=== PATIENT | female | born 1950 | race Caucasian/White ===

== ENCOUNTER 2018-07-07 10:02 | Emergency (ER) | payer MEDICARE, MEDICAID ==
[2018-07-07] MEDS ORDERED: Sodium Chloride 0.9% 10 ML Syringe FLUSH PRN (10:36)
[2018-07-07] MEDS ORDERED: GI Cocktail Oral Solution 30 ML PO ONE (10:38)
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
[2018-07-07] MEDS ORDERED: Sodium Chloride 0.9% 1,000 ML IV SCH (11:00)
[2018-07-07] MEDS ORDERED: Pantoprazole 40 MG Vial IVPUSH ONE (11:39)
[2018-07-07] MEDS ORDERED: Iopamidol 755 Mg/ML 100 ML Bottle IVPUSH ONE (11:39)
[2018-07-07] MEDS ORDERED: Iopamidol 755 MG/ML 150 ML Bottle IV ONE (11:53)
[2018-07-07] MEDS ORDERED: Pantoprazole 40 MG Vial ONE (13:43)
== END 2018-07-07 14:19 | disposition home or self-care (01) ==
LOC: LL.ED 10:02
DX: K29.70 Gastritis, unspecified, without bleeding (principal); I25.2 Old myocardial infarction; J44.9 Chronic obstructive pulmonary disease, unspecified; Z88.1 Allergy status to other antibiotic agents; Z88.8 Allergy status to other drugs, medicaments and biological substances; Z87.891 Personal history of nicotine dependence
CPT/HCPCS: 36415; 71046; 71275; 74177; 80053; 81001; 82150; 83690; 84484; 85025; 85379; 93005; 96361; 96374; 99284-25; A9270-GY; C9113; J7030; Q9967

== ENCOUNTER 2018-11-28 14:24 | Emergency (ER) | payer OTHER, MEDICARE, MEDICAID ==
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
[2018-11-28] MEDS ORDERED: Ketorolac 60 MG/2 ML SDV IM ONE (14:55)
[2018-11-28] MEDS ORDERED: methylPREDNISolone Acetate 80 MG/ML SDV IM ONE (14:56)
== END 2018-11-28 15:33 | disposition home or self-care (01) ==
LOC: LL.ED 14:24
DX: S29.011A Strain of muscle and tendon of front wall of thorax, initial encounter (principal); I25.10 Atherosclerotic heart disease of native coronary artery without angina pectoris; K21.9 Gastro-esophageal reflux disease without esophagitis; J43.1 Panlobular emphysema; I10 Essential (primary) hypertension; M15.0 Primary generalized (osteo)arthritis; I25.2 Old myocardial infarction; F41.9 Anxiety disorder, unspecified; F32.9 Major depressive disorder, single episode, unspecified; Z88.0 Allergy status to penicillin; Z88.6 Allergy status to analgesic agent; Z79.899 Other long term (current) drug therapy; Z79.82 Long term (current) use of aspirin; Z87.891 Personal history of nicotine dependence; X50.9XXA Other and unspecified overexertion or strenuous movements or postures, initial encounter
CPT/HCPCS: 71046; 96372; 99283; J1040; J1885

== ENCOUNTER 2021-07-11 12:22 | Emergency (ER) | payer MEDICAID, MEDICARE ==
[2021-07-11 13:45] LABS: ANION GAP 8.1 meq/L (7-15); CHLORIDE,CL 103 mmol/L (98-107); SODIUM,NA 141 mmol/L (136-145)
[2021-07-11] MEDS ORDERED: Albuterol/Ipratropium 3.0-0.5 MG/3 ML Neb Soln ONE (13:55)
== END 2021-07-11 14:29 | disposition home or self-care (01) ==
LOC: LL.ED 12:22
DX: J44.1 Chronic obstructive pulmonary disease with (acute) exacerbation (principal); I25.10 Atherosclerotic heart disease of native coronary artery without angina pectoris; I10 Essential (primary) hypertension; I25.2 Old myocardial infarction; K21.9 Gastro-esophageal reflux disease without esophagitis; Z88.0 Allergy status to penicillin; Z88.8 Allergy status to other drugs, medicaments and biological substances; Z79.82 Long term (current) use of aspirin; Z79.899 Other long term (current) drug therapy
CPT/HCPCS: 36415; 71046; 80053; 83605; 83735; 85025; 86140; 93005; 93010; 99284; 99285-25; J7620-GY

== ENCOUNTER 2022-02-18 14:15 | Emergency (ER) | payer MEDICARE, MEDICAID ==
[2022-02-18] MEDS ORDERED: Sodium Chloride 0.9% 10 ML Syringe FLUSH PRN (14:28)
[2022-02-18] MEDS ORDERED: Albuterol/Ipratropium 3.0-0.5 MG/3 ML Neb Soln NEB ONE (14:32)
[2022-02-18] MEDS ORDERED: methylPREDNISolone Sodium Succinate 125 MG/2 ML SDV IV ONE (14:32)
[2022-02-18 15:12] LABS: CORONAVIRUS COVID-19 NAA NEGATIVE (NEGATIVE); RESPIRATORY SYNCYTIAL VIR NAA NEGATIVE (NEGATIVE)
[2022-02-18 15:15] LABS: PTT,PARTIAL THROMBOPLSTIN TIME 24.6 SEC (23.6-29.8)
[2022-02-18 15:25] LABS: ANION GAP 10.6 meq/L (7-15)
[2022-02-18] MEDS ORDERED: cefTRIAXone 2 GM Vial IVPUSH ONE (15:36)
[2022-02-18] MEDS ORDERED: Doxycycline Monohydrate 100 MG Cap PO ONE (15:36)
== END 2022-02-18 16:50 | disposition home or self-care (01) ==
LOC: LL.ED 14:15
DX: J18.9 Pneumonia, unspecified organism (principal); I25.10 Atherosclerotic heart disease of native coronary artery without angina pectoris; I10 Essential (primary) hypertension; Z88.0 Allergy status to penicillin; Z79.82 Long term (current) use of aspirin; Z79.899 Other long term (current) drug therapy; Z20.822 Contact with and (suspected) exposure to COVID-19
CPT/HCPCS: 0241U; 36415; 71045; 80053; 83605; 83735; 83880; 84100; 84484; 85025; 85610; 85730; 86140; 87040; 93005; 93010; 94640; 94761; 96374; 96375; 99284; 99284-25; A9270-GY; J0696; J2930; J3490; J7620-GY

== ENCOUNTER 2022-02-23 18:49 | Emergency (ER) | payer MEDICARE, MEDICAID ==
[2022-02-23] MEDS: LORazepam 1 MG Tab PO ONE (19:26)
[2022-02-23 19:34] LABS: ANION GAP 8.1 meq/L (7-15); CHLORIDE,CL 103 mmol/L (98-107); SODIUM,NA 141 mmol/L (136-145)
[2022-02-23 19:35] LABS: ESTIMATED GFR 46 mL/min (>=60)
[2022-02-23] MEDS: methylPREDNISolone Sodium Succinate 125 MG/2 ML SDV IM ONE (20:36)
== END 2022-02-23 20:45 | disposition home or self-care (01) ==
LOC: LL.ED 18:49
DX: J44.9 Chronic obstructive pulmonary disease, unspecified (principal); F41.9 Anxiety disorder, unspecified; I25.10 Atherosclerotic heart disease of native coronary artery without angina pectoris; I10 Essential (primary) hypertension; Z88.0 Allergy status to penicillin; Z79.82 Long term (current) use of aspirin; Z79.899 Other long term (current) drug therapy
CPT/HCPCS: 36415; 71046; 80053; 83605; 83880; 85025; 85379; 96372; 99284; 99285; A9270-GY; J2930

== ENCOUNTER 2022-07-07 10:52 | Inpatient (IN) | payer MEDICARE, MEDICAID ==
[2022-07-07] MEDS ORDERED: Ondansetron 4 MG Tab.DIS PO PRN (11:00)
[2022-07-07] MEDS: predniSONE 20 MG Tab PO SCH (11:43)
[2022-07-07] MEDS: Albuterol/Ipratropium 3.0-0.5 MG/3 ML Neb Soln NEB SCH ×4 (11:43→23:10)
[2022-07-07] MEDS: oxyCODONE 5 MG Tab PO PRN (11:44)
[2022-07-07] MEDS ORDERED: Polyethylene Glycol 3350 Powder 17 GM Packet PO PRN (12:17)
[2022-07-07 12:20] LABS: ANION GAP 8.1 meq/L (7-15)
[2022-07-07] MEDS: Levofloxacin/Dextrose 5%-Water 750 MG in Premix Bag 1 BAG IV SCH (13:34)
[2022-07-07] MEDS: Magnesium Chloride 64 MG Tab.ER PO SCH (17:15)
[2022-07-07] MEDS: buPROPion 150 MG Tab.SR PO SCH (17:15)
[2022-07-07] MEDS: Arformoterol 15 MCG/2 ML Neb Soln INH SCH (17:15)
[2022-07-07] MEDS: Calcium Carbonate 500 MG Tab.Chew PO SCH (17:15)
[2022-07-07] MEDS ORDERED: LORazepam 0.5 MG Tab PO SCH (18:00)
[2022-07-07] MEDS: Budesonide 0.5 MG/2 ML Neb Susp INH SCH (19:10)
[2022-07-07] MEDS: Venlafaxine 75 MG Cap.ER PO SCH (19:10)
[2022-07-07] MEDS: atorvaSTATin 40 MG Tab PO SCH (19:11)
[2022-07-07] MEDS: Montelukast 10 MG Tab PO SCH (19:11)
[2022-07-07] MEDS: Diltiazem 120 MG Cap.CD PO SCH (19:11)
[2022-07-07] MEDS: LORazepam 1 MG Tab PO SCH (19:11)
[2022-07-07] MEDS: Losartan 25 MG Tab PO SCH (19:11)
[2022-07-07] MEDS: Acetaminophen 325 MG Tab PO PRN (21:18)
[2022-07-08] MEDS: Albuterol/Ipratropium 3.0-0.5 MG/3 ML Neb Soln NEB SCH ×7 (02:56→23:56)
[2022-07-08] MEDS: Arformoterol 15 MCG/2 ML Neb Soln INH SCH ×2 (07:42→17:13)
[2022-07-08] MEDS: Budesonide 0.5 MG/2 ML Neb Susp INH SCH ×2 (07:42→20:40)
[2022-07-08] MEDS: Magnesium Chloride 64 MG Tab.ER PO SCH ×2 (07:42→17:13)
[2022-07-08] MEDS: Enoxaparin 40 MG/0.4 ML Syringe SUBCUT SCH (07:42)
[2022-07-08] MEDS: Aspirin 81 MG Tab.Chew PO SCH (07:42)
[2022-07-08] MEDS: predniSONE 20 MG Tab PO SCH (07:43)
[2022-07-08] MEDS: Cholecalciferol (Vitamin D3) 10 MCG Tab PO SCH ×2 (07:43→17:13)
[2022-07-08] MEDS: Calcium Carbonate 500 MG Tab.Chew PO SCH ×2 (07:43→17:13)
[2022-07-08] MEDS: LORazepam 0.5 MG Tab PO SCH (07:43)
[2022-07-08] MEDS: Oxybutynin 5 MG Tab.ER PO SCH (07:44)
[2022-07-08] MEDS: buPROPion 150 MG Tab.SR PO SCH ×2 (07:44→17:13)
[2022-07-08] MEDS: Omeprazole 20 MG Cap.CR PO SCH (07:44)
[2022-07-08] MEDS: Tiotropium Bromide 4 GM Inhalation Spray (2.5mcg/1 dose; 10 doses) INH SCH (07:45)
[2022-07-08] MEDS: Acetaminophen 325 MG Tab PO PRN ×2 (07:53→13:23)
[2022-07-08] MEDS: Roflumilast [Daliresp] 500 MCG Tablet PO SCH (20:38)
[2022-07-08] MEDS: Montelukast 10 MG Tab PO SCH (20:38)
[2022-07-08] MEDS: Venlafaxine 75 MG Cap.ER PO SCH (20:38)
[2022-07-08] MEDS: atorvaSTATin 40 MG Tab PO SCH (20:38)
[2022-07-08] MEDS: Diltiazem 120 MG Cap.CD PO SCH (20:38)
[2022-07-08] MEDS: Losartan 25 MG Tab PO SCH (20:39)
[2022-07-08] MEDS: LORazepam 1 MG Tab PO SCH (20:39)
[2022-07-08] MEDS: Latanoprost 0.005% Ophth Soln 2.5 ML Bottle EYEBOTH SCH (20:39)
[2022-07-08] MEDS: oxyCODONE 5 MG Tab PO PRN (23:56)
[2022-07-09] MEDS: Albuterol/Ipratropium 3.0-0.5 MG/3 ML Neb Soln NEB SCH ×6 (04:16→23:08)
[2022-07-09] MEDS: Acetaminophen 325 MG Tab PO PRN ×2 (06:26→21:45)
[2022-07-09] MEDS: LORazepam 0.5 MG Tab PO SCH (07:36)
[2022-07-09] MEDS: Aspirin 81 MG Tab.Chew PO SCH (07:36)
[2022-07-09] MEDS: Budesonide 0.5 MG/2 ML Neb Susp INH SCH ×2 (07:37→19:19)
[2022-07-09] MEDS: Tiotropium Bromide 4 GM Inhalation Spray (2.5mcg/1 dose; 10 doses) INH SCH (07:37)
[2022-07-09] MEDS: Calcium Carbonate 500 MG Tab.Chew PO SCH ×2 (07:38→17:43)
[2022-07-09] MEDS: Cholecalciferol (Vitamin D3) 10 MCG Tab PO SCH ×2 (07:38→17:43)
[2022-07-09] MEDS: buPROPion 150 MG Tab.SR PO SCH ×2 (07:39→17:43)
[2022-07-09] MEDS: Oxybutynin 5 MG Tab.ER PO SCH (07:40)
[2022-07-09] MEDS: predniSONE 20 MG Tab PO SCH (07:40)
[2022-07-09] MEDS: Roflumilast [Daliresp] 500 MCG Tablet PO SCH (07:41)
[2022-07-09] MEDS: Magnesium Chloride 64 MG Tab.ER PO SCH ×2 (07:41→17:43)
[2022-07-09] MEDS: Omeprazole 20 MG Cap.CR PO SCH (07:41)
[2022-07-09] MEDS: Enoxaparin 40 MG/0.4 ML Syringe SUBCUT SCH (07:42)
[2022-07-09] MEDS: Arformoterol 15 MCG/2 ML Neb Soln INH SCH ×2 (08:10→17:43)
[2022-07-09] MEDS: oxyCODONE 5 MG Tab PO PRN (08:43)
[2022-07-09 09:12] LABS: ANION GAP 9.8 meq/L (7-15)
[2022-07-09] MEDS: Sodium Chloride 0.9% 10 ML Syringe FLUSH PRN ×2 (12:01→12:03)
[2022-07-09] MEDS: Levofloxacin/Dextrose 5%-Water 750 MG in Premix Bag 1 BAG IV SCH (12:01)
[2022-07-09] MEDS: Montelukast 10 MG Tab PO SCH (19:19)
[2022-07-09] MEDS: LORazepam 1 MG Tab PO SCH (19:20)
[2022-07-09] MEDS: Venlafaxine 75 MG Cap.ER PO SCH (19:20)
[2022-07-09] MEDS: atorvaSTATin 40 MG Tab PO SCH (19:20)
[2022-07-09] MEDS: Diltiazem 120 MG Cap.CD PO SCH (19:21)
[2022-07-09] MEDS: Losartan 25 MG Tab PO SCH (19:21)
[2022-07-09] MEDS: Latanoprost 0.005% Ophth Soln 2.5 ML Bottle EYEBOTH SCH (19:22)
[2022-07-10] MEDS: Albuterol/Ipratropium 3.0-0.5 MG/3 ML Neb Soln NEB SCH ×6 (04:57→23:21)
[2022-07-10] MEDS: Aspirin 81 MG Tab.Chew PO SCH (07:17)
[2022-07-10] MEDS: LORazepam 0.5 MG Tab PO SCH (07:17)
[2022-07-10] MEDS: Oxybutynin 5 MG Tab.ER PO SCH (07:18)
[2022-07-10] MEDS: Cholecalciferol (Vitamin D3) 10 MCG Tab PO SCH ×2 (07:18→19:10)
[2022-07-10] MEDS: Omeprazole 20 MG Cap.CR PO SCH (07:18)
[2022-07-10] MEDS: predniSONE 20 MG Tab PO SCH (07:18)
[2022-07-10] MEDS: Magnesium Chloride 64 MG Tab.ER PO SCH ×2 (07:18→17:41)
[2022-07-10] MEDS: Calcium Carbonate 500 MG Tab.Chew PO SCH ×2 (07:19→17:41)
[2022-07-10] MEDS: buPROPion 150 MG Tab.SR PO SCH ×2 (07:19→17:41)
[2022-07-10] MEDS: Tiotropium Bromide 4 GM Inhalation Spray (2.5mcg/1 dose; 10 doses) INH SCH (07:19)
[2022-07-10] MEDS: Roflumilast [Daliresp] 500 MCG Tablet PO SCH (07:20)
[2022-07-10] MEDS: oxyCODONE 5 MG Tab PO PRN ×2 (07:21→23:21)
[2022-07-10] MEDS: Enoxaparin 40 MG/0.4 ML Syringe SUBCUT SCH (07:22)
[2022-07-10] MEDS: Arformoterol 15 MCG/2 ML Neb Soln INH SCH ×2 (08:07→17:45)
[2022-07-10] MEDS: Budesonide 0.5 MG/2 ML Neb Susp INH SCH ×2 (08:19→19:33)
[2022-07-10 10:30] LABS: ANION GAP 9.6 meq/L (7-15)
[2022-07-10] MEDS: Acetaminophen 325 MG Tab PO PRN (13:16)
[2022-07-10] MEDS: Sodium Chloride 0.9% 10 ML Syringe FLUSH PRN (13:19)
[2022-07-10] MEDS: Montelukast 10 MG Tab PO SCH (19:30)
[2022-07-10] MEDS: Venlafaxine 75 MG Cap.ER PO SCH (19:30)
[2022-07-10] MEDS: Diltiazem 120 MG Cap.CD PO SCH (19:31)
[2022-07-10] MEDS: atorvaSTATin 40 MG Tab PO SCH (19:31)
[2022-07-10] MEDS: LORazepam 1 MG Tab PO SCH (19:31)
[2022-07-10] MEDS: Losartan 25 MG Tab PO SCH (19:33)
[2022-07-10] MEDS: Latanoprost 0.005% Ophth Soln 2.5 ML Bottle EYEBOTH SCH (19:51)
[2022-07-11] MEDS: Albuterol/Ipratropium 3.0-0.5 MG/3 ML Neb Soln NEB SCH ×3 (04:38→10:07)
[2022-07-11] MEDS: Calcium Carbonate 500 MG Tab.Chew PO SCH (07:28)
[2022-07-11] MEDS: Enoxaparin 40 MG/0.4 ML Syringe SUBCUT SCH (07:28)
[2022-07-11] MEDS: predniSONE 20 MG Tab PO SCH (07:29)
[2022-07-11] MEDS: Aspirin 81 MG Tab.Chew PO SCH (07:29)
[2022-07-11] MEDS: Oxybutynin 5 MG Tab.ER PO SCH (07:29)
[2022-07-11] MEDS: Omeprazole 20 MG Cap.CR PO SCH (07:30)
[2022-07-11] MEDS: Budesonide 0.5 MG/2 ML Neb Susp INH SCH (07:30)
[2022-07-11] MEDS: Roflumilast [Daliresp] 500 MCG Tablet PO SCH (07:30)
[2022-07-11] MEDS: buPROPion 150 MG Tab.SR PO SCH (07:30)
[2022-07-11] MEDS: Magnesium Chloride 64 MG Tab.ER PO SCH (07:30)
[2022-07-11] MEDS: oxyCODONE 5 MG Tab PO PRN (07:30)
[2022-07-11] MEDS: LORazepam 0.5 MG Tab PO SCH (07:31)
[2022-07-11] MEDS: Tiotropium Bromide 4 GM Inhalation Spray (2.5mcg/1 dose; 10 doses) INH SCH (07:32)
[2022-07-11] MEDS: Cholecalciferol (Vitamin D3) 10 MCG Tab PO SCH (10:03)
[2022-07-11] MEDS: Arformoterol 15 MCG/2 ML Neb Soln INH SCH (10:08)
[2022-07-11] MEDS: Levofloxacin/Dextrose 5%-Water 750 MG in Premix Bag 1 BAG IV SCH (12:36)
[2022-07-11] MEDS: Sodium Chloride 0.9% 10 ML Syringe FLUSH PRN ×2 (12:38→12:40)
== END 2022-07-11 15:30 | disposition home or self-care (01) | DRG 191 ==
LOC: LL.MS 10:52
PROVIDERS: ADMIT Hospitalist; ATTEND Hospitalist
DX: J44.1 Chronic obstructive pulmonary disease with (acute) exacerbation (principal); J96.11 Chronic respiratory failure with hypoxia; J96.12 Chronic respiratory failure with hypercapnia; R07.81 Pleurodynia; W18.30XA Fall on same level, unspecified, initial encounter; G89.29 Other chronic pain; M54.50 Low back pain, unspecified; H40.9 Unspecified glaucoma; Z66 Do not resuscitate; I25.10 Atherosclerotic heart disease of native coronary artery without angina pectoris; I10 Essential (primary) hypertension; I73.9 Peripheral vascular disease, unspecified; K59.09 Other constipation; K21.9 Gastro-esophageal reflux disease without esophagitis; M19.90 Unspecified osteoarthritis, unspecified site; E78.2 Mixed hyperlipidemia; M81.0 Age-related osteoporosis without current pathological fracture; G62.9 Polyneuropathy, unspecified; F31.9 Bipolar disorder, unspecified; N39.46 Mixed incontinence; D50.9 Iron deficiency anemia, unspecified; E83.42 Hypomagnesemia; F41.9 Anxiety disorder, unspecified; M85.80 Other specified disorders of bone density and structure, unspecified site; Y92.098 Other place in other non-institutional residence as the place of occurrence of the external cause; I25.2 Old myocardial infarction; Z79.82 Long term (current) use of aspirin; Z79.899 Other long term (current) drug therapy; Z79.51 Long term (current) use of inhaled steroids; Z79.890 Hormone replacement therapy; Z83.6 Family history of other diseases of the respiratory system; Z87.891 Personal history of nicotine dependence; Z99.81 Dependence on supplemental oxygen
CPT/HCPCS: 36415; 71111; 80048; 80053; 83735; 85025; 85027; 86140; 94640; 97162-GP; 99215; A9270-GY; J1650; J1956; J3490; J7512; J7620-GY

== ENCOUNTER 2022-07-19 18:59 | Emergency (ER) | payer MEDICARE, MEDICAID ==
[2022-07-19] MEDS ORDERED: Acetaminophen 500 MG Tab PO ONE (20:27)
[2022-07-19 20:28] LABS: CORONAVIRUS COVID-19 NAA NEGATIVE (NEGATIVE); RESPIRATORY SYNCYTIAL VIR NAA NEGATIVE (NEGATIVE)
[2022-07-19 20:28] LABS: CHLORIDE,CL 106 mmol/L (98-107); SODIUM,NA 143 mmol/L (136-145)
[2022-07-19 20:29] LABS: ANION GAP 9.7 meq/L (7-15); ESTIMATED GFR 45 mL/min (>=60)
== END 2022-07-19 21:10 | disposition home or self-care (01) ==
LOC: LL.ED 18:59
DX: R59.0 Localized enlarged lymph nodes (principal); J44.9 Chronic obstructive pulmonary disease, unspecified; B37.0 Candidal stomatitis; I25.10 Atherosclerotic heart disease of native coronary artery without angina pectoris; I10 Essential (primary) hypertension; I25.2 Old myocardial infarction; K21.9 Gastro-esophageal reflux disease without esophagitis; Z87.891 Personal history of nicotine dependence; Z88.0 Allergy status to penicillin; Z88.8 Allergy status to other drugs, medicaments and biological substances; Z79.82 Long term (current) use of aspirin; Z79.899 Other long term (current) drug therapy; Z20.822 Contact with and (suspected) exposure to COVID-19
CPT/HCPCS: 0241U; 36415; 71045; 80053; 82550; 83605; 84484; 85025; 85379; 86140; 99283; 99284; A9270-GY

== ENCOUNTER 2024-03-25 14:55 | Emergency (ER) | payer MEDICARE, MEDICAID ==
[2024-03-25] MEDS ORDERED: Sodium Chloride 0.9% 10 ML Syringe FLUSH PRN (15:11)
[2024-03-25 15:23] LABS: BASOPHILS ABSOLUTE AUTO 0.04 K/uL (0.00-0.20); BASOPHILS PERCENT AUTO 0.6 % (0.0-2.0); EOSINOPHILS ABSOLUTE AUTO 0.11 K/uL (0.00-0.50); EOSINOPHILS PERCENT AUTO 1.6 % (0.0-5.0); HEMATOCRIT 35.2 % (34.0-46.0); HEMOGLOBIN 11.2 g/dL (11.7-15.5); IMMATURE GRAN ABSOLUTE AUTO 0.01 10^3/uL (0.00-0.50); IMMATURE GRAN PERCENT AUTO 0.1 % (0.0-5.0); LYMPHOCYTES ABSOLUTE AUTO 1.52 K/uL (0.50-3.50); MEAN CORPUSCULAR HEMOGLOBIN 27.9 pg (28.2-33.3); MEAN CORPUSCULAR HGB CONC 31.8 g/dL (31.7-36.0); MEAN CORPUSCULAR VOLUME 87.6 fL (84.0-98.0); MONOCYTES ABSOLUTE AUTO 0.76 K/uL (0.00-1.00); NEUTROPHILS ABSOLUTE AUTO 4.47 K/uL (1.40-7.00); NEUTROPHILS PERCENT AUTO 64.7 % (45.0-80.0); PLATELET COUNT,PLT 135 K/uL (150-350); RED BLOOD CELL COUNT 4.02 M/uL (3.77-5.09); RED CELL DISTRIBUTION WIDTH 13.6 % (11.2-14.1); WHITE BLOOD CELL COUNT,WBC 6.9 K/uL (4.0-10.2)
[2024-03-25 15:40] LABS: PROTHROMBIN TIME 10.2 SEC (9.0-11.1)
[2024-03-25 15:54] LABS: ALANINE AMINOTRANSFERASE,ALT 29 U/L (12-78); ALBUMIN 3.3 g/dL (3.4-5.0); ALKALINE PHOSPHATASE 79 IU/L (46-116); ANION GAP 8.2 meq/L (7-15); ASPARTATE AMNIOTRANSFERASE,AST 20 U/L (15-37); BILIRUBIN TOTAL 0.3 mg/dL (0.2-1.0); BLOOD UREA NITROGEN,BUN 17 mg/dL (7-18); CALCIUM 8.7 mg/dL (8.5-10.1); CARBON DIOXIDE,CO2 28.8 mmol/L (21.0-32.0); CHLORIDE,CL 105 mmol/L (98-107); CREATININE 1.32 mg/dL (0.51-1.17); ESTIMATED GFR 43 mL/min (>=60); GLUCOSE RANDOM 93 mg/dL (70-99); MAGNESIUM 1.8 mg/dL (1.8-2.4); POTASSIUM,K 4.4 mmol/L (3.5-5.1); PROTEIN TOTAL,TP 6.3 g/dL (6.4-8.2); SODIUM,NA 142 mmol/L (136-145)
[2024-03-25 15:55] LABS: PRO B-TYPE NATRIUR PEPT,BNPPRO 413 pg/mL (0-125)
== END 2024-03-25 17:30 ==
LOC: LL.ED 14:55
DX: R07.89 Other chest pain (principal); I10 Essential (primary) hypertension; K21.9 Gastro-esophageal reflux disease without esophagitis; M19.90 Unspecified osteoarthritis, unspecified site; Z88.0 Allergy status to penicillin; Z88.8 Allergy status to other drugs, medicaments and biological substances; Z79.82 Long term (current) use of aspirin; Z79.899 Other long term (current) drug therapy
CPT/HCPCS: 36415; 71045; 80053; 83735; 83880; 84484; 85025; 85610; 93005; 93010; 99284; 99285

== ENCOUNTER 2024-07-29 13:02 | Emergency (ER) | payer MEDICARE, MEDICAID ==
[2024-07-29 13:37] LABS: BASOPHILS ABSOLUTE AUTO 0.05 K/uL (0.00-0.20); BASOPHILS PERCENT AUTO 0.7 % (0.0-2.0); EOSINOPHILS ABSOLUTE AUTO 0.19 K/uL (0.00-0.50); EOSINOPHILS PERCENT AUTO 2.5 % (0.0-5.0); HEMATOCRIT 34.5 % (34.0-46.0); HEMOGLOBIN 10.7 g/dL (11.7-15.5); IMMATURE GRAN ABSOLUTE AUTO 0.02 10^3/uL (0.00-0.04); IMMATURE GRAN PERCENT AUTO 0.3 % (0.0-0.4); LYMPHOCYTES ABSOLUTE AUTO 1.23 K/uL (0.50-3.50); LYMPHOCYTES PERCENT AUTO 16.2 % (10.0-50.0); MEAN CORPUSCULAR HEMOGLOBIN 25.8 pg (28.2-33.3); MEAN CORPUSCULAR VOLUME 83.1 fL (84.0-98.0); MONOCYTES ABSOLUTE AUTO 1.07 K/uL (0.00-1.00); MONOCYTES PERCENT AUTO 14.1 % (2.0-14.0); NEUTROPHILS ABSOLUTE AUTO 5.04 K/uL (1.40-7.00); NEUTROPHILS PERCENT AUTO 66.2 % (45.0-80.0); PLATELET COUNT,PLT 146 K/uL (150-350); RED BLOOD CELL COUNT 4.15 M/uL (3.77-5.09); RED CELL DISTRIBUTION WIDTH 14.1 % (11.2-14.1); WHITE BLOOD CELL COUNT,WBC 7.6 K/uL (4.0-10.2)
[2024-07-29] MEDS: methylPREDNISolone Sodium Succinate 125 MG/2 ML SDV IVPUSH ONE (14:02)
[2024-07-29 14:05] LABS: ALBUMIN 3.2 g/dL (3.4-5.0); ANION GAP 5.6 meq/L (7-15); BILIRUBIN TOTAL 0.4 mg/dL (0.2-1.0); CALCIUM 8.9 mg/dL (8.5-10.1); CARBON DIOXIDE,CO2 30.4 mmol/L (21.0-32.0); CREATININE 0.99 mg/dL (0.51-1.17); EST CRCL DRUG DOSING (CG) 49.95 mL/min; MAGNESIUM 1.7 mg/dL (1.8-2.4); POTASSIUM,K 4.2 mmol/L (3.5-5.1); PROTEIN TOTAL,TP 6.6 g/dL (6.4-8.2)
[2024-07-29 14:22] LABS: CORONAVIRUS COVID-19 NAA NEGATIVE (NEGATIVE); INFLUENZA A NAA NEGATIVE (NEGATIVE); INFLUENZA B NAA NEGATIVE (NEGATIVE); RESPIRATORY SYNCYTIAL VIR NAA NEGATIVE (NEGATIVE)
== END 2024-07-29 15:00 ==
LOC: LL.ED 13:02
DX: J44.1 Chronic obstructive pulmonary disease with (acute) exacerbation (principal); E83.42 Hypomagnesemia; I25.10 Atherosclerotic heart disease of native coronary artery without angina pectoris; I10 Essential (primary) hypertension; I25.2 Old myocardial infarction; Z88.0 Allergy status to penicillin; Z88.8 Allergy status to other drugs, medicaments and biological substances; Z79.82 Long term (current) use of aspirin; Z79.51 Long term (current) use of inhaled steroids; Z79.899 Other long term (current) drug therapy
CPT/HCPCS: 0241U; 36415; 71046; 80053; 83735; 83880; 84484; 85025; 87651; 93005; 96374; 99285-25; J2919